=== PATIENT | male | born 1960 | race African-American/Black ===

== ENCOUNTER 2016-06-26 11:40 | Emergency (ER) | payer OTHER ==
[~2016-06-26] VITALS: Ht 188 cm; Wt 184.2 kg
[2016-06-26 11:41] VITALS: BP 169/97
[2016-06-26] MEDS ORDERED: BACTRIM DS TAB1 EACH PO (12:03)
[2016-06-26] MEDS ORDERED: KEFLEX500 MG PO (12:03)
== END 2016-06-26 12:18 | disposition home or self-care (01) ==
LOC: ER 11:40
DX: E11.621 Type 2 diabetes mellitus with foot ulcer (principal); L97.519 Non-pressure chronic ulcer of other part of right foot with unspecified severity; I10 Essential (primary) hypertension; E78.00 Pure hypercholesterolemia, unspecified

== ENCOUNTER 2017-11-21 02:07 | Inpatient (IN) | payer OTHER ==
[~2017-11-21] VITALS: Ht 185.4 cm; Wt 201.3 kg
[2017-11-21] VITALS (10 sets, daily range): BP systolic 98–137; BP diastolic 56–90
--- NOTE | ~2017-11-21 | EKG ---
[address] [employer] [place] [address] ELECTROCARDIOGRAM REPORT Name: LUCIAN WESTBROOK Room #: 204-P ADM IN M.R.#: [id number] Admission: 11/21/17 Attend Phys: Tony Fregoso MD Discharge: Date of : 58 Report #: [id number] THIS REPORT FOR: //name// [facility] ED Test Date: 2017-11-21 Test Time: 03:07:07 Pat Name: LUCIAN WESTBROOK Department: Room: 170 7 Gender: M Materials Inspector: RYAN : 1960 Requested By: Lawrence Anderson Order Number: [id number] MD: Noel Chavez Measurements Intervals [place] Rate: 68 P: 41 AK: 215 QRS: -2 QRSD: 117 T: 64 QT: 429 QTc: 457 Interpretive Statements Sinus rhythm Prolonged AK interval Nonspecific intraventricular conduction delay Minimal ST depression, anterolateral leads No previous ECG available for comparison Electronically Signed On 11-21-2017 8:08:01 CDT by Noel Chavez [email or web address] <ELECTRONICALLY SIGNED> By: Noel Chavez MD, [facility] 11/21/17 0808 0307 030 Noel Chavez MD, FACC /EPI
--- NOTE | ~2017-11-21 | 2DMMODE ---
[facility] [address] [place] [address] 2 D/M-MODE ECHOCARDIOGRAM Name: LUCIAN WESTBROOK Room #: 204-P ADM IN M.R.#: [id number] Admission: 11/21/17 Attend Phys: Tony Fregoso MD Discharge: Date of : 58 Date of Service: 11/21/17 1511 Report #: [id number] THIS REPORT FOR: //name// APPROVED REPORT Study performed: 11/21/2017 13:22:41 EXAM: Comprehensive 2D, Doppler, and color-flow Echocardiogram Patient Location: Bedside Room #: 204 Status: routine BSA: 3.02 HR: 55 bpm BP: 98/56 mmHg Other Information Study Quality: Technically Limited Technically limited study due to body habitus, inability to position patient. Indications Diabetes Chest Pain Hypertension/HDD Echo Enhancing Agent Indication: Endocardial border delineation Agent(s) / Amount(s) Used: Optison 3 cc Aortic Valve AoV Peak Ramsey.: 0.99 m/s AO Peak Gr.: 3.92 mmHg Mitral Valve E/A Ratio: 1.2 MV Decel. Time: 287.63 ms MV E Max Ramsey.: 0.82 m/s MV A Ramsey.: 0.67 m/s MV PHT: 83.41 ms IVRT: 106.11 ms Left Ventricle Left ventricle is not well visualized. There is normal left ventricular wall thickness. The left ventricular systolic function appears normal. The left ventricular ejection fraction appears within [facility] [address] [place] [address] 2 D/M-MODE ECHOCARDIOGRAM Name: LUCIAN WESTBROOK Room #: 204-P ADM IN M.R.#: [id number] Admission: 11/21/17 Attend Phys: Tony Fregoso MD Discharge: Date of : 58 Date of Service: 11/21/17 1511 Report #: [id number] the normal range. LVEF is 55-60%. This study is not technically sufficient to allow evaluation of the LV diastolic function. Right Ventricle Right ventricle is grossly normal in size. Right ventricular systolic function is grossly normal. Atria Left atrium is not well visualized. Right atrium is not well visualized. Aortic Valve The aortic valve is not well visualized. No aortic regurgitation is present. There is no aortic valvular stenosis. Mitral Valve Mitral valve is not well visualized. There is no mitral valve regurgitation noted. No evidence of mitral valve stenosis. Tricuspid Valve The tricuspid valve is not well visualized. There is no tricuspid valve regurgitation noted. Pulmonic Valve Pulmonic valve is not well visualized. There is no pulmonic valvular regurgitation. Great Vessels The aortic root is not well visualized but is probably normal size. IVC is not visualized. Pericardium There is no pericardial effusion. <Conclusion> Left ventricle is not well visualized. LVEF is 55-60%. Left atrium is not well visualized. Right atrium is not well visualized. The aortic valve is not well visualized. No aortic regurgitation is present. There is no aortic valvular stenosis. Mitral valve is not well visualized. There is no mitral valve regurgitation noted. No evidence of mitral valve stenosis. The tricuspid valve is not well visualized. [facility] [address] [place] [address] 2 D/M-MODE ECHOCARDIOGRAM Name: LUCIAN WESTBROOK Room #: 204-P ADM IN M.R.#: [id number] Admission: 11/21/17 Attend Phys: Tony Fregoso MD Discharge: Date of : 58 Date of Service: 11/21/17 151 Report #: [id number] There is no tricuspid valve regurgitation noted. Pulmonic valve is not well visualized. The aortic root is not well visualized but is probably normal size. There is no pericardial effusion. <ELECTRONICALLY SIGNED> By: Víctor Bush MD 11/21/17 151 10 10 Víctor Bush MD /INF
--- NOTE | ~2017-11-21 | EKG ---
[place] [address] [address] [place] [address] ELECTROCARDIOGRAM REPORT Name: LUCIAN WESTBROOK Room #: 204-P ADM IN M.R.#: [id number] Admission: 11/21/17 Attend Phys: Tony Fregoso MD Discharge: Date of : 58 Report #: [id number] THIS REPORT FOR: //name// [facility] Test Date: 2017-11-23 Test Time: 06:24:37 Pat Name: LUCIAN WESTBROOK Department: Room: 204 P Gender: M District Leader: KRISTIE : 1960 Requested By: You Xiao Order Number: [id number] MD: Noel Chavez Measurements Intervals [place] Rate: 71 P: 48 MN: 177 QRS: -16 QRSD: 109 T: -2 QT: 413 QTc: 449 Interpretive Statements Sinus rhythm Ventricular premature complex Low voltage, precordial leads Borderline T abnormalities, inferior leads Baseline wander in lead(s) V1 Compared to ECG 11/22/2017 10:10:14 Ventricular premature complex(es) now present Electronically Signed On 11-23-2017 8:34:07 CDT by Noel Chavez [email or web address] <ELECTRONICALLY SIGNED> By: Noel Chavez MD, [facility] 11/23/17 0834 0624 Noel Chavez MD, [facility] /EPI
--- NOTE | ~2017-11-21 | EKG ---
[address] [address] ELECTROCARDIOGRAM REPORT Name: LUCIAN WESTBROOK Room #: 204-P ADM IN M.R.#: [id number] Admission: 11/21/17 Attend Phys: Tony Fregoso MD Discharge: Date of : 58 Report #: [id number] THIS REPORT FOR: //name// [facility] Test Date: 2017-11-22 Test Time: 06:48:22 Pat Name: LUCIAN WESTBROOK Department: Room: 204 P Gender: M Telephone Triage Nurse: KRISTIE : 1960 Requested By: Amy Pollard Order Number: [id number] MD: Law Campa Measurements Intervals [place] Rate: 62 P: 47 MS: 185 QRS: -5 QRSD: 97 T: 13 QT: 434 QTc: 441 Interpretive Statements Sinus rhythm Probable left atrial enlargement Low voltage, precordial leads Compared to ECG 11/21/2017 03:07:07 Low QRS voltage now present First degree AV block no longer present Intraventricular conduction delay no longer present ST (T wave) deviation no longer present Electronically Signed On 11-22-2017 7:54:27 CDT by Law Campa [email or web address] <ELECTRONICALLY SIGNED> By: Law Campa MD 11/22/17 0754 0648 0648 Law Campa MD /EPI
--- NOTE | ~2017-11-21 | EKG ---
[address] [address] ELECTROCARDIOGRAM REPORT Name: LUCIAN WESTBROOK Room #: 204-P ADM IN M.R.#: [id number] Admission: 11/21/17 Attend Phys: Tony Fregoso MD Discharge: Date of : 58 Report #: [id number] THIS REPORT FOR: //name// [facility] Test Date: 2017-11-22 Test Time: 10:10:14 Pat Name: LUCIAN WESTBROOK Department: Room: 204 P Gender: M Power System Engineer: YONNY : 1960 Requested By: You Xiao Order Number: [id number] MD: Noel Chavez Measurements Intervals [place] Rate: 53 P: 25 GA: 177 QRS: -7 QRSD: 106 T: 2 QT: 442 QTc: 415 Interpretive Statements Sinus rhythm Inferior infarct, old Compared to ECG 11/22/2017 06:48:22 No significant change was found Electronically Signed On 11-22-2017 15:38:10 CDT by Noel Chavez [email or web address] <ELECTRONICALLY SIGNED> By: Neol Chavez MD, [facility] 11/22/17 1538 1010 1010 Noel Chavez MD, FACC /EPI
--- NOTE | ~2017-11-21 | EKG ---
[address] [place] [address] ELECTROCARDIOGRAM REPORT Name: LUCIAN WESTBROOK Room #: 204-P ADM IN M.R.#: [id number] Admission: 11/21/17 Attend Phys: Tony Fregoso MD Discharge: Date of : 58 Report #: [id number] THIS REPORT FOR: //name// [facility] ED Test Date: 2017-11-21 Test Time: 02:08:30 Pat Name: LUCIAN WESTBROOK Department: Room: Gender: Travel Writer: [facility] : 1960 Requested By: Lawrence Anderson Order Number: [id number] MD: Noel Chavez Measurements Intervals [place] Rate: 65 P: 43 GA: 217 QRS: 2 QRSD: 114 T: 76 QT: 436 QTc: 454 Interpretive Statements Sinus rhythm Nonspecific ST segment abnormality No previous ECG available for comparison Electronically Signed On 11-21-2017 8:07:39 CDT by Noel Chavez [email or web address] <ELECTRONICALLY SIGNED> By: Noel Chavez MD, [facility] 11/21/17 0807 0208 0208 Noel Chavez MD, FAC /EPI
--- NOTE | ~2017-11-21 | EKG ---
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
--- NOTE | ~2017-11-21 | CATHLAB ---
[facility] [address] [place] [address] INVASIVE PROCEDURE REPORT Name: LUCIAN WESTBROOK Room #: 204-P ADM IN M.R.#: [id number] Admission: 11/21/17 Attend Phys: Tony Fregoso MD Discharge: Date of : 58 Date of Service: 11/22/17 1308 Report #: [id number] THIS REPORT FOR: //name// APPROVED REPORT Study performed: 11/22/2017 07:18:21 Patient Details Patient Status: In-Patient Room #: The patient is a 57 year-old male Event Personnel You Xiao Sanitary Engineering Teacher, Johnathan Mac RN, Jose Alejandro Summers(R)(CV) Cathie Solorzano David Monitor Procedures Performed Left Heart Cath w/or w/o Coronaries [id number] [facility] BMS Place w/wo Plasty Single RCA [id number] BMSSINGLE Indication Non-STEMI , Dyspnea, Unstable angina , Chest pain Risk Factors Obesity, Hypercholesterolemia, Hypertension, Diabetes Tobacco History () Procedure Narrative The Right Wrist^ was infiltrated with 1% Lidocaine subcutaneous anesthesia. A TRANSRADIAL SLENDER 6F GLIDESHEATH KIT #[id number] sheath was inserted into the . Coronary angiography was performed using coronary diagnostic catheters. The right coronary system was accessed and visualized with a 5FR AR MOD #[id number] catheter. The left coronary system was accessed and visualized with a 5FR JL 3.5 #[id number] catheter. The left ventricle was accessed and visualized with a PIGTAIL catheter. Left ventricular/Aortic Valve gradient assessed via catheter pullback. Closure device was deployed with a Fr VASC BAND XL 29CM #[id number]. The patient tolerated the procedure well and there were no complications associated with the procedure. There was no hematoma. Intraoperative Conscious Sedation Sedation start time: 7.59 Case end Time: 9.01 Fentanyl 100 mcg Versed 2 mg [facility] [address] [place] [address] INVASIVE PROCEDURE REPORT Name: DARIANALUCIAN Room #: 204-P [facility] IN M.R.#: [id number] Admission: 11/21/17 Attend Phys: Tony Fregoso MD Discharge: Date of : 58 Date of Service: 11/22/17 1308 Report #: [id number] Fluoro Time: 18.28 minutes Dose: DAP 98004. cGycm2 4489 mGy Contrast Type and Amount: Omnipaque 275 ml Coronary Angiography The patient's coronary anatomy is right dominant. Diagnostic Cath Left Main Patent vessel, no flow limiting lesions. LAD Moderate to large size caliber vessel, traveling down the anterior wall and wrapping around the apex. There is mild disease in the proximal segment, 30%. Diagonal 1 Small-caliber vessel, no flow-limiting lesions. Diagonal 2 Small-caliber vessel, no flow-limiting lesions. Circumflex Moderate size caliber vessel, tortuous. There is mild diffuse disease in the proximal segment, 30%. OM1 Patent vessel, with no flow-limiting lesions. Right Coronary Dominant vessel with a tortuous mid segment, with mild diffuse disease. There is a total occlusion in the distal segment. Left Ventriculography Left Ventriculography was not performed. Ejection Fraction was >55% based off patient's Echocardiogram. An LVEDP was measured and there is no gradient across the outflow tract. Hemodynamics The aortic pressure is 113/85 mmHg with a mean of 98 mmHg. The left ventricular pressure is 116/30 mmHg with a mean of mmHg. The left ventricular end diastolic pressure is 49 mmHg. There was no gradient across the aortic valve upon pullback. Pullback from the left ventricle to the aorta revealed no gradient across the aortic valve. PCI Technique Lesion Anticoagulation was achieved with Angiomax. Patient was preloaded with Brillinta. Percutaneous coronary intervention was performed on the distal right coronary artery. The lesion stenosis prior to intervention was 100% with ADILENE 0 flow. A VISTA 6FR AR 1 #[id number] Guide Catheter was used to engage the ostium. A Luge Wire .014 x 182CM #[id number] Interventional Guidewire was used to cross the lesion. BALLOON DILATION A Balloon catheter [employer] RX 2.0 x 15 #[id number] was inserted and [facility] [address] [place] [address] INVASIVE PROCEDURE REPORT Name: LUCIAN WESTBROOK Room #: 204-P [facility] IN M.R.#: [id number] Admission: 11/21/17 Attend Phys: Tony Fregoso MD Discharge: Date of : 58 Date of Service: 11/22/17 1308 Report #: [id number] inflated up to 10atm for 20seconds. STENT DEPLOYMENT A bare metal stent INTEGRITY RX 2.5 X 22 #[id number] was inserted and inflated up to 14.00atm for 33seconds. Additional Inflation: 10.00atm for 9seconds. Final angiography reveals 0 % stenosis with ADILENE 33 flow. COMMENTS After percutaneous coronary intervention was performed on the total occlusion in the distal RCA, there was yazidism of ADILENE-3 blood flow into the PDA and RPL branches. Both vessels are patent with no flow-limiting lesions. Conclusion 1. Successful placement of a bare metal stent into the total occlusion in the distal RCA with yazidism of ADILENE-3 blood flow into both branches. 2. Mild disease in LAD and left circumflex arteries. 3. Recommend dual antiplatelet therapy and aggressive risk factor management. <ELECTRONICALLY SIGNED> By: You Xiao MD 11/22/17 1308 1308 1308 You Xiao MD /INF
[~2017-11-21 02:07] MED LIST: BACTRIM DS TAB1 EACH PO; KEFLEX500 MG PO
[2017-11-21 02:26] LABS: ABSOLUTE NEUTROPHILS 4.5 thou/uL (1.4-8.2); BASOPHILS 0.8 % (0.0-2.0); EOSINOPHILS 1.5 % (0.0-3.0); HEMATOCRIT 39.4 % (42.0-52.0); HEMOGLOBIN 13.3 gm/dL (14.0-18.0); LYMPHOCYTES 34.7 % (24.0-44.0); MCHC 33.7 g/dL (28.0-37.0); MCV 88.9 fL (80.0-100.0); PLATELET COUNT 307 thou/uL (150-400); RBC 4.43 mil/uL (4.50-6.00); RDW 15.7 % (10.5-14.5); WBC 8.3 thou/uL (4.0-11.0)
[2017-11-21 02:34] LABS: CALCIUM 8.3 mg/dL (8.5-10.1); POTASSIUM 4.1 mmol/L (3.5-5.1)
[2017-11-21 02:42] LABS: TOTAL BILIRUBIN 0.3 mg/dL (<0.1-1.0); TOTAL PROTEIN 7.5 g/dL (6.4-8.2); TROPONIN-I 0.08 ng/mL (<0.06)
[2017-11-21] MEDS ORDERED: NIFEDIPINE ER90 M1 PO (04:20)
[2017-11-21] MEDS ORDERED: LOPRESSOR100 M1 PO (04:22)
[2017-11-21] MEDS ORDERED: ELIQUIS5 MG PO (04:25)
[2017-11-21] MEDS ORDERED: HYDRALAZINE 2525 MG PO (04:27)
[2017-11-21] MEDS ORDERED: LEVEMIR SUBQ (04:48)
[2017-11-21 06:57] LABS: CHOLESTEROL 206 mg/dL (<200); HDL CHOLESTEROL 35 mg/dL (>40); LDL CHOLESTEROL 153 mg/dL (<100); TC:HDL 5.9 Ratio (Not establshd); TRIGLYCERIDE 90 mg/dL (<150); VLDL 18 mg/dL (<40)
[2017-11-22 00:19] VITALS: BP 103/55
[2017-11-22 04:43] VITALS: BP 109/69
[2017-11-22 07:20] VITALS: BP 125/60
[2017-11-22 07:46] LABS: BASOPHILS 0.4 % (0.0-2.0); EOSINOPHILS 0.2 % (0.0-3.0); HEMATOCRIT 36.5 % (42.0-52.0); HEMOGLOBIN 12.2 gm/dL (14.0-18.0); LYMPHOCYTES 23.3 % (24.0-44.0); MCH 29.5 pg (26.0-34.0); MCHC 33.4 g/dL (28.0-37.0); MCV 88.3 fL (80.0-100.0); MONOCYTES 10.3 % (1.0-8.0); PLATELET COUNT 251 thou/uL (150-400); POLYS 65.8 % (36.0-66.0); RBC 4.13 mil/uL (4.50-6.00); RDW 14.9 % (10.5-14.5); WBC 7.7 thou/uL (4.0-11.0)
[2017-11-22 07:57] LABS: ALBUMIN 2.8 g/dL (3.4-5.0); CALCIUM 8.2 mg/dL (8.5-10.1); CREATININE 0.9 mg/dL (0.7-1.3); POTASSIUM 3.7 mmol/L (3.5-5.1); TOTAL BILIRUBIN 0.5 mg/dL (<0.1-1.0)
[2017-11-22 11:39] VITALS: BP 118/100
[2017-11-22 15:26] VITALS: BP 106/69
[2017-11-22 19:11] VITALS: BP 112/70
[2017-11-23] VITALS (7 sets, daily range): BP systolic 100–118; BP diastolic 48–74
[2017-11-23 04:17] LABS: HEMOGLOBIN 11.9 gm/dL (14.0-18.0); MCH 29.5 pg (26.0-34.0); MCHC 33.2 g/dL (28.0-37.0); MCV 88.7 fL (80.0-100.0); RBC 4.05 mil/uL (4.50-6.00); RDW 15.2 % (10.5-14.5)
[2017-11-23 04:34] LABS: ALBUMIN 2.7 g/dL (3.4-5.0); CALCIUM 8.2 mg/dL (8.5-10.1); POTASSIUM 3.1 mmol/L (3.5-5.1); TOTAL BILIRUBIN 0.9 mg/dL (<0.1-1.0); TOTAL PROTEIN 6.9 g/dL (6.4-8.2)
[2017-11-23 04:51] LABS: TROPONIN-I 21.93 ng/mL (<0.06)
[2017-11-23] MEDS ORDERED: PEPCID20 MG PO (10:44)
[2017-11-23] MEDS ORDERED: PAIN & FEVER325 MG PO (10:44)
[2017-11-23] MEDS ORDERED: BRILINTA90 MG PO (10:44)
[2017-11-23] MEDS ORDERED: ASPIRIN81 M2 PO (10:45)
== END 2017-11-23 12:44 | disposition home or self-care (01) | DRG 248 ==
LOC: ER 02:07 → EROBS 02:52 → 2N 02:52 → ENTRNSPT 11-23 11:42 → EDTRNSPTSTS 11-23 11:50 → 2N 11-23 12:44
PROVIDERS: Emergency Medicine; Hospitalist; Internal Medicine Cardiovascular Disease; Nurse Practitioner Acute Care; Nurse Practitioner Adult Health
PROC: 4A023N7 Measurement of Cardiac Sampling and Pressure, Left Heart, Percutaneous Approach (ICD-10-PCS; principal; 2017-11-22)
PROC: B2111ZZ Fluoroscopy of Multiple Coronary Arteries using Low Osmolar Contrast (ICD-10-PCS; principal; 2017-11-22)
PROC: 02703DZ Dilation of Coronary Artery, One Artery with Intraluminal Device, Percutaneous Approach (ICD-10-PCS; principal; 2017-11-22)
DX: I21.4 Non-ST elevation (NSTEMI) myocardial infarction (principal); E43 Unspecified severe protein-calorie malnutrition; Z68.43 Body mass index [BMI] 50.0-59.9, adult; E11.9 Type 2 diabetes mellitus without complications; I10 Essential (primary) hypertension; R61 Generalized hyperhidrosis; F17.210 Nicotine dependence, cigarettes, uncomplicated; E78.5 Hyperlipidemia, unspecified; E66.9 Obesity, unspecified; I48.2 Chronic atrial fibrillation; R09.02 Hypoxemia; G47.30 Sleep apnea, unspecified; E78.00 Pure hypercholesterolemia, unspecified; Z88.8 Allergy status to other drugs, medicaments and biological substances; Z80.3 Family history of malignant neoplasm of breast; Z83.6 Family history of other diseases of the respiratory system; Z83.3 Family history of diabetes mellitus; Z79.899 Other long term (current) drug therapy; Z79.82 Long term (current) use of aspirin
CPT/HCPCS: 10081